=== PATIENT | female | born 1950 | race Caucasian/White ===

== ENCOUNTER 2021-03-03 17:36 | Emergency (ER) | payer MEDICARE, MEDICAID ==
[~2021-03-03] VITALS: Ht 157.5 cm; Wt 70.3 kg
[2021-03-03 18:29] LABS: BASOPHILS # (AUTO) 0.1 X10'3 (0-0.2); BASOPHILS % (AUTO) 0.9 % (0-1); EOSINOPHILS # (AUTO) 0.1 X10'3 (0-0.9); HEMATOCRIT 42.1 % (35.0-45.0); HEMOGLOBIN 13.7 g/dl (12.0-16.0); LYMPHOCYTES # (AUTO) 1.8 X10'3 (1.1-4.8); LYMPHOCYTES % (AUTO) 29.4 % (21-51); MEAN CORPUSCULAR HEMOGLOBIN 27.9 PG (27.0-31.0); MEAN CORPUSCULAR HGB CONC 32.5 g/dL (33.0-36.5); MEAN CORPUSCULAR VOLUME 85.7 FL (78-98); MEAN PLATELET VOLUME 8.8 FL (7.4-10.4); MONOCYTES # (AUTO) 0.5 X10'3 (0-0.9); MONOCYTES % (AUTO) 8.4 % (2-12); NEUTROPHILS # (AUTO) 3.7 X10'3 (1.8-7.7); NEUTROPHILS % (AUTO) 59.3 % (42-75); PLATELET COUNT 256 X10'3 (140-440); RED BLOOD COUNT 4.91 X10'6 (4.20-5.60); RED CELL DISTRIBUTION WIDTH 13.9 % (11.5-14.5); WHITE BLOOD COUNT 6.2 X10'3 (4.5-11.0)
[2021-03-03 18:47] LABS: ALANINE AMINOTRANSFERASE 37 U/L (12-78); ALBUMIN/GLOBULIN RATIO 1.1 (1.1-1.5); ALKALINE PHOSPHATASE 92 IU/L (46-116); ANION GAP 11 (8-16); ASPARTATE AMINO TRANSFERASE 24 U/L (10-37); BILIRUBIN,TOTAL 0.4 MG/DL (0.1-1.0); BLOOD UREA NITROGEN 14 MG/DL (7-18); BUN/CREATININE RATIO 12.7 (6.6-38.0); CALCIUM 9.2 MG/DL (8.5-10.1); CHLORIDE 105 MMOL/L (99-107); GLUCOSE 94 MG/DL (70-104); LIPASE 273 U/L (73-393); POTASSIUM 3.6 MMOL/L (3.5-5.1); SODIUM 143 MMOL/L (135-145); TOTAL CARBON DIOXIDE 27.5 MMOL/L (24-32); TOTAL PROTEIN 7.7 G/DL (6.4-8.2); eGFR 49 ML/MIN
[2021-03-03] MEDS ORDERED: LIDOcaine Viscous 15ml cup MM ONE (20:50)
[2021-03-03] MEDS ORDERED: pantoprazole 40mg Tablet.DR PO ONE (20:50)
[2021-03-03] MEDS ORDERED: mag hydrox/Alum hydrox/simeth 30ml oral suspension PO ONE (20:50)
[2021-03-03] MEDS ORDERED: PANT-47 PO (20:52)
[2021-03-03 21:00] VITALS: BP 149/92
== END 2021-03-03 21:02 | disposition home or self-care (01) ==
LOC: ER 17:37
DX: K21.9 Gastro-esophageal reflux disease without esophagitis (principal); E78.00 Pure hypercholesterolemia, unspecified; I10 Essential (primary) hypertension; Z79.899 Other long term (current) drug therapy
CPT/HCPCS: 36415; 71045; 80053; 83690; 84484; 85025; 93005; 99285

== ENCOUNTER 2023-11-27 10:29 | Outpatient (CLI) | payer MEDICARE, MEDICAID ==
[~2023-11-27 10:29] MED LIST: PANT-47 PO
== END 2023-11-27 23:59 | disposition home or self-care (01) ==
LOC: RAD 10:29
PROVIDERS: ATTEND Physician Assistant
DX: M25.512 Pain in left shoulder (principal)
CPT/HCPCS: 73030

== ENCOUNTER 2024-02-04 20:48 | Emergency (ER) | payer MEDICARE, MEDICAID ==
[~2024-02-04] VITALS: Ht 157.5 cm; Wt 67.4 kg
[2024-02-04 21:05] VITALS: BP 190/97; PULSE 67; RESP 16; TEMP 98.2; O2SAT 97
[2024-02-04] MEDS ORDERED: PRED20TA PO (21:49)
[2024-02-04] MEDS ORDERED: LIDO700A32 TOP (21:49)
[2024-02-04] MEDS: dexamethasone sod phosphate 10mg/ml inj IM STA (22:14)
[2024-02-04] MEDS ORDERED: PANT-47 PO (22:40)
[2024-02-04] MEDS: LIDOcaine 5% patch TP SCH (22:47)
[2024-02-05] MEDS ORDERED: LIDOcaine 5% patch TP SCH (08:00)
== END 2024-02-04 23:01 | disposition home or self-care (01) ==
LOC: ER 20:49
DX: M75.02 Adhesive capsulitis of left shoulder (principal); E78.00 Pure hypercholesterolemia, unspecified; I10 Essential (primary) hypertension; Z79.899 Other long term (current) drug therapy
CPT/HCPCS: 96372; 99284; J1100

== ENCOUNTER 2024-07-23 17:18 | Emergency (ER) | payer MEDICARE, MEDICAID ==
[~2024-07-23] VITALS: Ht 157.5 cm; Wt 67.9 kg
[~2024-07-23 17:18] MED LIST changes: +LIDO700A32 TOP; +PRED20TA PO
[2024-07-23 20:39] VITALS: TEMP 97.7
[2024-07-23 23:08] VITALS: BP 178/96; PULSE 63; RESP 16; O2SAT 98
== END 2024-07-23 23:12 | disposition left against medical advice (07) ==
LOC: ER 17:18
DX: I10 Essential (primary) hypertension (principal); Z53.21 Procedure and treatment not carried out due to patient leaving prior to being seen by health care provider

== ENCOUNTER 2025-01-03 17:21 | Emergency (ER) | payer MEDICARE, MEDICAID ==
[~2025-01-03] VITALS: Ht 157.5 cm; Wt 69.8 kg
[~2025-01-03 17:21] MED LIST changes: +LIDO-52 TOP; -LIDO700A32 TOP
[2025-01-03 17:28] VITALS: TEMP 97.8
--- NOTE | 2025-01-03 17:45 | ELECTROCARDIOGRAPH REPORT ---
[facility] Test Date: 2025-01-03 Test Time: 17:36:30 Pat Name: RYAN BROOKE Department: EMERGENCY ROOM Patient ID: [id number] Room: Gender: F Termite Control Representative: : 1950 Requested By: ADELINE CHAMPION Order Number: [id number] Reading MD: Measurements Intervals [place] Rate: 84 P: 55 IN: 156 QRS: 25 QRSD: 72 T: 18 QT: 466 QTc: 551 Interpretive Statements Sinus rhythm Probable left atrial enlargement Borderline T abnormalities, anterior leads Prolonged QT interval Baseline wander in lead(s) II,III,aVR,aVF,V1 Please click the below link to view image of tracing.
[2025-01-03 18:01] LABS: MEAN PLATELET VOLUME 8.4 FL (7.4-10.4); RED CELL DISTRIBUTION WIDTH 13.9 % (11.5-14.5)
--- NOTE | 2025-01-03 18:01 | Physician Documentation ---
History of Present Illness ~ Chief Complaint: Chest Pain Stated Complaint: CONGESTION Time Seen by MD: 22:26 Primary Medical Doctor: DR. GARDENIA HOOKER HPI This is a 74-year-old female who presents with sinus congestion however in the past hours has begun experiencing left-sided chest pain and feeling of sweaty patient reports no cardiac history. She does report significant history of heartburn and states this feels similar. She noticed that yesterday she began to have some cough cold congestion symptoms along with some ear discomfort in his concerned she is developing sinusitis. She also developed a headache and therefore took some Tylenol and also some Mucinex per recommendation by primary care. After this or stomach began to get upset therefore she took omeprazole with no relief. Symptoms have since improved. Medication Reconciliation Allergies: Coded Allergies: No Known Allergies (Unverified , 07/23/24) Scheduled Lidocaine (Lidoderm), 1 PATCH TOP DAILY Lisinopril (Lisinopril), 1 TAB PO DAILY, (Reported) Lisinopril (Lisinopril), 1 TAB PO DAILY, (Reported) Discontinued Medications Pantoprazole Sodium (PROTONIX tablet), 1 TAB PO DAILY Discontinued Reason: patient no longer taking Prednisone* (Prednisone*), 1 TAB PO Q12H Discontinued Reason: patient no longer taking Past Medical History Past Medical History: High Cholesterol, Hypertension Past Surgical History: noncontributory Lives In: Home Review of Systems ROS All review of systems negative except as per HPI Physical Exam Vital Signs: Temperature: 97.8, Source: Temporal, Heart Rate: 88, Respiratory Rate: 18, BP: 167/89, Pulse Oximetry: 99, Weight: 69.850 Physical Exam General: Patient is awake, alert, oriented x4 in no acute distress Head: Normocephalic and atraumatic. Eyes: Conjunctival normal. EOMI. PERRL. ENT: Mucous membranes moist. Left tympanic membrane is obstructed, right tympanic membrane is bulging but does not appear infected Neck: Supple, trachea is midline. Chest: Clear to auscultation bilaterally without rales, rhonchi, or wheezes. There is no accessory muscle use or retractions. Cardiac: RRR without murmurs, gallops, or rubs. Abd: Soft, nondistended, nontender, with normoactive bowel sounds. No guarding, rebound, or rigidity. Progress Results/Orders Results/Orders Orders - MANUEL CHASE MD Acetaminophen 1,000mg/100ml Iv (Ofirmev (01/03/25 22:40) Completed Orders - MANUEL CHASE MD Ondansetron Inj. (Zofran 4mg/2ml Vial) (01/03/25 22:40) Vital Signs 01/03/25 01/03/25 01/03/25 17:28 19:39 21:31 Temp 97.8 Pulse 88 83 Resp 18 16 15 B/P (MAP) 167/89 169/84 (112) Pulse Ox 99 99 O2 Flow Rate 0 Laboratory Tests Test 01/03/25 17:47 01/03/25 19:19 01/03/25 20:20 White Blood Count 5.7 Red Blood Count 5.11 Hemoglobin 14.2 Hematocrit 41.8 Mean Corpuscular Volume 81.7 Mean Corpuscular Hemoglobin 27.7 Mean Corpuscular Hemoglobin Concent 33.9 Red Cell Distribution Width 13.9 Platelet Count 234 Mean Platelet Volume 8.4 Neutrophils (%) (Auto) 75.6 H Lymphocytes (%) (Auto) 13.1 L Monocytes (%) (Auto) 9.2 Eosinophils (%) (Auto) 0.7 Basophils (%) (Auto) 1.4 H Neutrophils # (Auto) 4.3 Lymphocytes # (Auto) 0.7 L Monocytes # (Auto) 0.5 Eosinophils # (Auto) 0.0 Basophils # (Auto) 0.1 CBC Comment Sodium Level 137 Potassium Level 3.2 L Chloride Level 101 Carbon Dioxide Level 25.3 Anion Gap 11 Blood Urea Nitrogen 14 Creatinine 1.09 H Estimated GFR/1.73 m2 49 BUN/Creatinine Ratio 12.8 Glucose Level 114 H Calcium Level 8.9 Troponin I High Sensitivity 5 4 4 Pro-B-Type Natriuretic Peptide 513 H Albumin 3.9 Chemistry Comments Troponin I High Sens Percent Delta 20 0 Troponin I Hi Sens Absolute Change -1 0 EKG/XRAY/CT/US/VASC/MRI EKG : Additional Comment EKG interpreted by myself shows time of 1736 rate 84, sinus rhythm, normal axis, no ST changes Chest X-Ray : Additional Comments Exam: CHEST,SINGLE VIEW CHEST RADIOGRAPH Indication: CP Technique: Single frontal view of the chest was obtained Comparison: CHEST,SINGLE VIEW on DOS: 03/03/21 FINDINGS: Lines and Tubes: None Lungs: No focal consolidation. Pleura: No effusion. No pneumothorax. Cardiomediastinal contours: Unremarkable Bones: No acute osseous abnormality. IMPRESSION: No acute cardiopulmonary disease. Medical Decision Making Findings Patient presents to the emergency room for evaluation of heartburn and sinusitis as per HPI. Differentials include but are not limited to sinusitis, viral syndrome, heartburn, ACS therefore emergent labs and imaging indicated. Labs reassuring for troponins negative x2 with a heart score of three and he had not feel she requires admission for this and I frankly do not believe her chest discomfort is related to ACS but rather heartburn. Heartburn has improved since being here. Patient has taken omeprazole for occasional heartburn and I explained that this is an inappropriate medication for this and Pepcid would be better for occasional symptoms. Patient is only on day two of sinusitis symptoms and I will not be prescribing antibiotics at this time. Instructions to follow up with her doctor. Departure Disposition: HOME / SELF CARE / HOMELESS Impression: Primary Impression: Acid reflux Additional Impression: Congestion of nasal sinus Condition: Stable Discharge Instructions: Gastroesophageal Reflux Scan Referrals: NO PRIMARY CARE PROVIDER (PCP) Prescriptions Famotidine (Pepcid) 20 Mg Tablet 1 TAB PO Q12H for Reflux, #30 TAB 0 Refills Prov: MANUEL CHASE MD 01/03/25 Education Educated: Patient Educated regarding: diagnosis, treatment, need for follow up Signature Scribe Signature: No scribe Attestation: The note accurately reflects work and decisions made by me.Manuel Chase MD 01/03/25 22:55 SUSHILA BARLOW Jan 03, 2025 18:01 MANUEL CHASE MD Jan 03, 2025 22:48
--- NOTE | 2025-01-03 18:14 | RADIOLOGY REPORT ---
CHEST RADIOGRAPH Indication: CP Technique: Single frontal view of the chest was obtained Comparison: CHEST,SINGLE VIEW on DOS: 03/03/21 FINDINGS: Lines and Tubes: None Lungs: No focal consolidation. Pleura: No effusion. No pneumothorax. Cardiomediastinal contours: Unremarkable Bones: No acute osseous abnormality. IMPRESSION: No acute cardiopulmonary disease.
[2025-01-03 18:20] LABS: CREATININE 1.09 MG/DL (0.40-0.90); PRO BRAIN NATRIURETIC PEPTIDE 513 PG/ML (0-450); TOTAL CARBON DIOXIDE 25.3 MMOL/L (24-32); eCRCL 35 ML/MIN; eGFR 49 ML/MIN
[2025-01-03] MEDS ORDERED: LISI20TA28 PO (21:36)
[2025-01-03] MEDS ORDERED: FAMO-129 PO (22:54)
[2025-01-03] MEDS: acetaminophen 1,000mg/100ml IV 100 ML IV ONE (22:57)
[2025-01-03] MEDS: ondansetron/PF 4mg/2ml inj IV ONE (23:00)
[2025-01-03 23:52] VITALS: BP 132/83; PULSE 87; RESP 17; O2SAT 97
== END 2025-01-03 23:54 | disposition home or self-care (01) ==
LOC: ER 17:21
DX: K21.9 Gastro-esophageal reflux disease without esophagitis (principal); R06.02 Shortness of breath; R09.81 Nasal congestion; R51.9 Headache, unspecified; R05.9 Cough, unspecified; E78.00 Pure hypercholesterolemia, unspecified; I10 Essential (primary) hypertension; Z79.899 Other long term (current) drug therapy
CPT/HCPCS: 36415; 71045; 80048; 83880; 84484; 85025; 93005; 96374; 96375; 99285; J0131; J2405